=== PATIENT | female | born 1965 | race Caucasian/White ===

== ENCOUNTER 2017-10-01 10:22 | Day surgery (SDC) | payer BC, SELFPAY ==
[2017-10-01] VITALS (7 sets, daily range): BP systolic 121–143; BP diastolic 53–81; PULSE 95–126; RESP 16; TEMP 36.4–36.9; O2SAT 96–98; BMI 29.7
--- NOTE | 2017-10-01 | GASB_PTH ---
PATIENT: MARCO ANTONIO PEDROZA LOC: [facility] U#:[id number] AGE/SX: 51/F ROOM: RE10/01/[address]: Dr. Andrea Bernard MD : 1965 BED: DIS: 10/01/2017 SPEC #: [id number] RECD: 10/01/17 12:30 STATUS: NÉSTOR GILBERT #: [id number] BRAVO: 10/01/17 00:[address]: Andrea Bernard DEPT: SURGICAL PATHOLOGY RECD BY: Joo Covington ENTERED: 10/01/17 13:01 SP TYPE: Gastric Bx OTHR DR: Dr. Tomas Oropeza DO Tissues: A - Gastric mucous membrane B - Gastric fundus C - Esophageal mucous membrane Procedures: Surgery Specimen Level IV HEADER OPERATION: EGD PRE-OP DIAGNOSIS: Epigastric pain; RUQ pain TISSUE SUBMITTED: A ? Antral biopsy, B ? Fundic polyp biopsy, C ? Distal esophagus biopsy MICROSCOPIC DIAGNOSIS A. Antral biopsy: Mild gastritis. B. Fundic polyp, biopsy: Fundic gland polyp. C. Distal esophagus, biopsy: Fragment of squamous epithelium with reactive changes. SJ:rahul 10/02/17 COMMENT A. The results of immunohistochemistry for Helicobacter pylori will be reported separately ([id number]). MICROSCOPIC DESCRIPTION Slides are reviewed. A. The specimen shows fragments of gastric mucosa with chronic inflammatory cell infiltrates in the lamina propria consisting of lymphocytes and plasma cells, consistent with mild chronic gastritis. GROSS DESCRIPTION A - Received in fixative is one container labeled with the patient's name and designated antral biopsy. The specimen consists of two irregular fragments of light rosales soft tissue that in aggregate measure 0.5 x 0.3 x 0.1 cm. The specimen is totally submitted in one cassette. B - Received in fixative is one container labeled with the patient's name and designated fundic polyp biopsy. The specimen consists of one irregular fragment of light rosales soft tissue that measures 0.3 x 0.3 x 0.1 cm. The specimen is totally submitted in one cassette. C - Received in fixative is one container labeled with the patient's name and designated distal esophagus biopsy. The specimen consists of one irregular fragment of light rosales soft tissue that measures 0.2 x 0.2 x 0.1 cm. The specimen is totally submitted in one cassette. / MONIQUE:rahul 10/01/17 TC:3 CPT: 74273 x3
--- NOTE | 2017-10-01 | IMM_PTH ---
PATIENT: MARCO ANTONIO PEDROZA LOC: EN U#:[id number] AGE/SX: 51/F ROOM: RE10/01/[address]: Dr. Andrea Bernard MD : 1965 BED: DIS: 10/01/2017 SPEC #: [id number] RECD: 10/02/17 13:55 STATUS: NÉSTOR GILBERT #: [id number] BRAVO: 10/01/17 00:[address]: Andrea Bernard DEPT: IMMUNOHISTOCHEMISTRY RECD BY: Claribel Farris ENTERED: 10/02/17 13:56 SP TYPE: IMMUNO OTHR DR: Dr. Tomas Oropeza DO Tissues: A - Stomach, NOS Procedures: H Pylori (initial) PHYSICIAN & INSTITUTION [place] [id number] SPECIMEN INFORMATION: Tissue Source: A ? Antral biopsy Clinical Info: Epigastric pain, RUQ pain Specimen Number: [id number] CPT code: 36463 METHODOLOGY: Deparaffinized sections of prefer/formalin-fixed tissue or PAP/DQ stained slides are incubated with monoclonal/polyclonal antibodies/oligonucleotide probes. Localization is made via biotin free immunoperoxidase method. Appropriate controls are performed and reacted as expected. Results on target cell population are indicated in the following table: RESULTS: ANTIBODY / CLONE RESULT Block A H Pylori (polyclonal) negative These tests were developed and their performance characteristics determined by [facility]. They may not have been cleared or approved by the [place]. Food and Drug Administration. The FDA has determined that such clearance or approval is not necessary. INTERPRETATION: A. Antral biopsy: Negative for Helicobacter pylori organisms. SJ:rahul 10/03/17
--- NOTE | 2017-10-01 12:15 | PCM.OPRPT ---
Problem List (1) Epigastric pain Status: Acute Report of Operation Date of Procedure: 10/01/17 Pre-Operative Diagnosis: Nausea and intractable epigastric pain Post-Operative Diagnosis: Very small hiatal hernia, normal-appearing esophagus, bile reflux within the stomach with mild antral erythema, fundic polyps, normal duodenum Surgery/Procedure Performed:: Esophagogastroduodenoscopy with antral and fundic polyp and distal esophageal biopsies Description of Surgical Findings:: Timeout and informed consent was obtained. 51-year-old female was taken to the endoscopy suite. Her oropharynx anesthetized with Topex. She was placed in a left lateral decubitus position. Throughout the procedure total 100 mg Demerol and 4-1/2 mg of Versed were given as intravenous sedation. GIF-130 gastroscope was inserted into the esophageal inlet. It was advanced without difficulty. The proximal mid distal esophagus actually did not appear to be remarkable. Very small hiatal hernia. Distal EG junction at 38 cm. The scope was advanced in the stomach. Diffuse staining of the gastric mucosa with bile was noted. Mild erythema of the antrum. Scattered fundic polyps. The scope was advanced through the pylorus the first portion second portions of the duodenum were inspected this was not remarkable. The scope was withdrawn back into the stomach. It was retroflexed. The very small hiatal hernia noted. Some scattered gastric fundic polyps noted. No ulceration. Biopsy was obtained of the antrum. Excess fluid and air was aspirated free the scope was withdrawn a biopsy was obtained of 1 of the medical sales representative fundic polyps. Then the scope was withdrawn and a distal esophageal biopsy was obtained. Excess fluid and air was aspirated free the procedure was completed with the patient tolerating it well. Impression Very small hiatal hernia. Findings suggestive possible bile gastritis. Benign-appearing gastric fundic polyps. The severity of the findings visually do not seem to correlate with the patient's severity of epigastric pain and intractable nausea. I will discuss with her the potential of pursuing a laparoscopic cholecystectomy with selective cholangiography. Medications were given at 04/15/2002. The scope was inserted [id number]. Procedure was completed at 1212. Cc: Dr. Sandip Bernard M.D., F.A.C.S. Type of Anesthesia:: IV Sedation
--- NOTE | 2017-10-01 12:20 | OP.PCM_ITS ---
Problem List (1) Epigastric pain Status: Acute Report of Operation Date of Procedure: 10/01/17 Pre-Operative Diagnosis: Nausea and intractable epigastric pain Post-Operative Diagnosis: Very small hiatal hernia, normal-appearing esophagus, bile reflux within the stomach with mild antral erythema, fundic polyps, normal duodenum Surgery/Procedure Performed:: Esophagogastroduodenoscopy with antral and fundic polyp and distal esophageal biopsies Description of Surgical Findings:: Timeout and informed consent was obtained. 51-year-old female was taken to the endoscopy suite. Her oropharynx anesthetized with Topex. She was placed in a left lateral decubitus position. Throughout the procedure total 100 mg Demerol and 4-1/2 mg of Versed were given as intravenous sedation. GIF-130 gastroscope was inserted into the esophageal inlet. It was advanced without difficulty. The proximal mid distal esophagus actually did not appear to be remarkable. Very small hiatal hernia. Distal EG junction at 38 cm. The scope was advanced in the stomach. Diffuse staining of the gastric mucosa with bile was noted. Mild erythema of the antrum. Scattered fundic polyps. The scope was advanced through the pylorus the first portion second portions of the duodenum were inspected this was not remarkable. The scope was withdrawn back into the stomach. It was retroflexed. The very small hiatal hernia noted. Some scattered gastric fundic polyps noted. No ulceration. Biopsy was obtained of the antrum. Excess fluid and air was aspirated free the scope was withdrawn a biopsy was obtained of 1 of the loan representative fundic polyps. Then the scope was withdrawn and a distal esophageal biopsy was obtained. Excess fluid and air was aspirated free the procedure was completed with the patient tolerating it well. Impression Very small hiatal hernia. Findings suggestive possible bile gastritis. Benign- appearing gastric fundic polyps. The severity of the findings visually do not seem to correlate with the patient' s severity of epigastric pain and intractable nausea. I will discuss with her the potential of pursuing a laparoscopic cholecystectomy with selective cholangiography. Medications were given at 04/15/2002. The scope was inserted [id number]. Procedure was completed at 1212. Cc: Dr. Sandip Bernard M.D., F.A.C.S. Type of Anesthesia:: IV Sedation
== END 2017-10-01 13:48 | disposition home or self-care (01) ==
LOC: EN 10:24 → AC 10:26
PROVIDERS: Family Provider Student in an Organized Health Care Education/Training Program; PCP Student in an Organized Health Care Education/Training Program; Visit Provider Surgery
PROC: (CPT 43239; principal; 2017-10-01 11:55)
DX: J33.8 Other polyp of sinus (principal); K44.9 Diaphragmatic hernia without obstruction or gangrene; D68.51 Activated protein C resistance
CPT/HCPCS: 43239; 88305; 88342; 99152; J7120

== ENCOUNTER → 2017-11-28 08:07 | Outpatient (CLI) | payer BC, SELFPAY ==
[2017-10-01 13:22] VITALS: BP 138/70; PULSE 100; RESP 18; TEMP 36.8; O2SAT 100; BMI 29.7
== END ==
PROVIDERS: Family Provider Student in an Organized Health Care Education/Training Program; PCP Student in an Organized Health Care Education/Training Program; Visit Provider Surgery
DX: Z53.9 Procedure and treatment not carried out, unspecified reason (principal)